=== PATIENT | male | born 1995 | race Caucasian/White ===

== ENCOUNTER 2018-04-02 12:29 | Emergency (ER) | payer OTHER ==
[2018-04-02 12:36] VITALS: BP 128/77
--- NOTE | 2018-04-02 12:44 | EDPHY ---
H & P Stated Complaint: laceration right index from work, knife Time Seen by Provider: 04/02/18 12:38 HPI/ROS: HPI: This is a 22-year-old male who presents with Chief Complaint: Laceration of right index finger from work. Location: Right index finger pad Quality: Laceration Duration: Yesterday at 4:00 p.m. 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 He reports that he washed the area with soap and water and applied a Band-Aid. This morning after he took a shower the area started to rebleed. Denies radiation, weakness, decreased range of motion. Tetanus is current. Modifying Factors: See above Comment: ROS: A comprehensive 10 system review of systems is otherwise negative aside from elements mentioned in the history of present illness. MEDICAL/SURGICAL/SOCIAL HISTORY: Medical history: Generally healthy. Does not take any regular medications. Surgical history: Denies Social history: Employed. Never smoked. CONSTITUTIONAL: Well-developed, well-nourished, young adult white male, awake and alert, no obvious distress HEENT: Atraumatic and normocephalic. NECK: supple, no midline tenderness Cardiovascular: Normal S1/S2, regular rate, regular rhythm, without murmur rub or gallop. PULMONARY/CHEST: Symmetrical and nontender. no crepitus. Clear to auscultation bilaterally. Good air movement. No accessory muscle usage. ABDOMEN: Soft, nondistended, nontender. EXTREMITIES: 2/2 pulses, strength 5/5, right index finger pad shows superficial skin avulsion measuring approximately 2 cm x 2 cm with no active bleeding. No nail involvement. DIP/PIP/MCP flexion/extension intact with good light touch sensation. no deformities, no clubbing, no cyanosis or edema. NEUROLOGICAL: no focal neuro deficits. GCS 15. Light touch sensation intact. SKIN: Warm and dry, no erythema. no rash. Good capillary refill. Source: Patient Exam Limitations: No limitations - Personal History Current Tetanus/Diphtheria Vaccine: Yes Current Tetanus Diphtheria and Acellular Pertussis (TDAP): Yes - Medical/Surgical History Hx Asthma: No Hx Chronic Respiratory Disease: No Hx Diabetes: No Hx Cardiac Disease: No Hx Renal Disease: No Hx Cirrhosis: No Hx Alcoholism: No Hx HIV/AIDS: No Hx Splenectomy or Spleen Trauma: No Other PMH: none - Social History Smoking Status: Never smoked Constitutional: Initial Vital Signs Temperature (C) 36.6 C 04/02/18 12:32 Heart Rate 65 04/02/18 12:32 Respiratory Rate 16 04/02/18 12:32 Blood Pressure 128/77 H 04/02/18 12:32 O2 Sat (%) 98 04/02/18 12:32 O2 Delivery Mode Room Air Medical Decision Making ED Course/Re-evaluation: Tetanus is up-to-date. No indication for sutures to be placed. No signs of infection. Area cleaned thoroughly; Surgifoam, Xeroform and tube gauze dressing applied with good hemostasis. Verbal and written wound care instructions provided No signs of neurovascular compromise/tenting of skin/compartment syndrome/ extremities and joints examined above and below area of concern and are neurovascularly intact/tenosynovitis. This patient was seen under the supervision of my secondary supervising physician. I evaluated care for this patient with attending. Discussed this patient with Dr. Patrick. Differential Diagnosis: Differential diagnosis includes but is not limited to skin avulsion, laceration , nerve injury, tendon injury, foreign body, cellulitis. Departure - Departure Disposition: Home, Routine, Self-Care Clinical Impression: Avulsion of skin of finger without complication Qualifiers: Encounter type: initial encounter Qualified Code(s): S61.209A - Unspecified open wound of unspecified finger without damage to nail, initial encounter Condition: Good Instructions: Skin Avulsion (ED), Laceration Without Closure (ED) Additional Instructions: Keep the dressing dry and in place for 48 hours. After 48 hours, you may remove the dressing; wash the site daily with mild soap and water; then pat dry. Apply topical antibiotic ointment and keep covered until fully healed. Take Tylenol 650 mg every 4 hours and/or Ibuprofen 600 mg every 8 hours with food as needed for pain. Return to the ER immediately if you experience redness, red streaks, have fevers /chills, flu like symptoms, limited range of motion, or any other symptoms that concern you. Referrals: [facility],. [Clinic] - As per Instructions Stand Alone Forms: Work Excuse
== END 2018-04-02 12:59 | disposition home or self-care (01) ==
DX: S61.218A Laceration without foreign body of other finger without damage to nail, initial encounter (principal); Y93.G1 Activity, food preparation and clean up; W26.0XXA Contact with knife, initial encounter; Y99.0 Civilian activity done for income or pay